=== PATIENT | female | born 1990 | race Caucasian/White ===

== ENCOUNTER 2019-03-15 02:29 | Emergency (ER) | payer SELFPAY ==
[~2019-03-15] VITALS: Ht 167.6 cm; Wt 60.0 kg
[2019-03-15 02:30] VITALS: BP 103/65
[2019-03-15] MEDS ORDERED: LIDOCAINE-MPF 1%, 2ML ONE ×2 (03:19→03:45)
[2019-03-15] MEDS ORDERED: LIDOCAINE-MPF 1%, 2ML INFIL ONE (03:30)
== END 2019-03-15 04:23 | disposition home or self-care (01) ==
LOC: ED 03:16
DX: L02.01 Cutaneous abscess of face (principal); F12.10 Cannabis abuse, uncomplicated; F17.210 Nicotine dependence, cigarettes, uncomplicated; Z72.9 Problem related to lifestyle, unspecified; Z75.9 Unspecified problem related to medical facilities and other health care; Z91.14 Patient's other noncompliance with medication regimen; Z86.14 Personal history of Methicillin resistant Staphylococcus aureus infection
CPT/HCPCS: 10060; 99283

== ENCOUNTER 2019-03-16 02:55 | Emergency (ER) | payer SELFPAY | END 2019-03-16 03:16 | LOC: ED 03:02 | DX: R68.89 Other general symptoms and signs (principal); Z53.21 Procedure and treatment not carried out due to patient leaving prior to being seen by health care provider ==

== ENCOUNTER 2019-06-02 00:09 | Emergency (ER) | payer SELFPAY ==
[~2019-06-02] VITALS: Ht 167.6 cm; Wt 64.4 kg
[2019-06-02] MEDS ORDERED: LIDOCAINE-MPF 1%, 5ML ONE (01:45)
[2019-06-02] MEDS ORDERED: LIDOCAINE 2%, 20ML SQ ONE (02:00)
[2019-06-02 02:37] VITALS: BP 102/57
== END 2019-06-02 02:51 | disposition home or self-care (01) ==
LOC: ED 01:09
DX: L02.414 Cutaneous abscess of left upper limb (principal); F11.10 Opioid abuse, uncomplicated; F17.210 Nicotine dependence, cigarettes, uncomplicated
CPT/HCPCS: 10060; 87070; 87147; 87205; 99406

== ENCOUNTER 2019-06-06 17:45 | Emergency (ER) | payer SELFPAY ==
[~2019-06-06] VITALS: Ht 167.6 cm; Wt 63.0 kg
[2019-06-06 17:51] VITALS: BP 113/78
[2019-06-06] MEDS ORDERED: SULFAMETH./TRIMETHOPRIM DS 800MG/160MG TABLET ONE (18:30)
[2019-06-06] MEDS ORDERED: CEPHALEXIN 500 MG CAPSULE ONE (18:31)
[2019-06-06] MEDS ORDERED: CEPHALEXIN 500 MG CAPSULE PO ONE (19:00)
[2019-06-06] MEDS ORDERED: SULFAMETH./TRIMETHOPRIM DS 800MG/160MG TABLET PO ONE (19:00)
== END 2019-06-06 19:00 | disposition home or self-care (01) ==
LOC: ED 18:20
DX: Z48.01 Encounter for change or removal of surgical wound dressing (principal)
CPT/HCPCS: 99283